=== PATIENT | female | born 1970 | race Caucasian/White ===

== ENCOUNTER 2021-11-20 08:13 | Outpatient (CLI) | payer SELFPAY ==
--- NOTE | 2021-11-20 08:21 | MM_ITS ---
WS: [id number] BILATERAL DIAGNOSTIC DIGITAL BREAST MAMMOGRAPHY WITH ANDRA DISPLACEMENT VIEWS. CAD PERFORMED. RIGHT BREAST ULTRASOUND, LIMITED. HISTORY: RIGHT BREAST PAIN COMPARISON: None available. Bilateral craniocaudal and mediolateral oblique views are performed with tomosynthesis and SM. Andra displacement views in CC and MLO projection also performed. Breasts composition: There are scattered areas of fibroglandular density. Implants are prepectoral a nd intact. No extravasation or collapse of either implant. No adjacent mass or distortion of soft tis sues. No abnormality is noted towards the RIGHT axillary tail in the area of pain. RIGHT breast ultrasound, limited. Ultrasound directed to the area of pain and towards the axillary tail. No suspicious findings are quyen ntified. The visualized implant appears intact. No soft tissue mass. No shadowing or soft tissue thic kening. Benign lymph nodes in the axilla. MM/[place] [id number] IMPRESSION: BI-RADS: 2-Benign FOLLOW-UP: 1 Year Follow-up No abnormality noted in the RIGHT breast in the area of pain.
== END 2021-11-20 08:14 | disposition home or self-care (01) ==
PROVIDERS: PCP Internal Medicine; Visit Provider Internal Medicine
DX: N64.4 Mastodynia (principal)
CPT/HCPCS: 76642; 77066

== ENCOUNTER 2023-11-29 11:55 | Outpatient (CLI) | payer MEDICAID, SELFPAY ==
--- NOTE | 2023-11-29 12:02 | MM_ITS ---
WS: [id number] BILATERAL SCREENING DIGITAL BREAST MAMMOGRAPHY WITH ANDRA DISPLACEMENT VIEWS. CAD PERFORMED. HISTORY: SCREENING COMPARISON: 11/20/2021 Bilateral craniocaudal and mediolateral oblique views are performed with tomosynthesis and SM. Andra displacement views in CC and MLO projection also performed. Breasts composition: There are scattered areas of fibroglandular density. Prepectoral implants are identified. No collapse of the implant. No suspicious mass or calcification. MM/[place] [id number] IMPRESSION: BI-RADS: 2-Benign FOLLOW-UP: 1 Year Follow-up
== END 2023-11-29 11:56 | disposition home or self-care (01) ==
LOC: RAD 11:56
PROVIDERS: PCP Internal Medicine; Visit Provider Internal Medicine
DX: Z12.31 Encounter for screening mammogram for malignant neoplasm of breast (principal); R92.323 Mammographic fibroglandular density, bilateral breasts; Z98.82 Breast implant status
CPT/HCPCS: 77063; 77067

== ENCOUNTER 2024-01-07 09:55 | Day surgery (SDC) | payer MEDICAID, SELFPAY ==
[2024-01-07 10:08] VITALS: BP 161/94; PULSE 74; RESP 16; TEMP 36.6; O2SAT 99
[2024-01-07] MEDS: sodium chloride 0.9% 1,000 ML 30 ML IV (10:24)
--- NOTE | 2024-01-07 10:44 | W.PM.OPSUD ---
Surgery/Procedure H&P Update DATE OF PROCEDURE: January 07, 2024 DATE H&P PERFORMED: 12/25/23 H&P UPDATE INFORMATION: I have reviewed H&P completed within last 30 days, I have examined patient prior to procedure, No changes to prior documentation, Changes to prior documentation as noted here and H&P is in [facility] EMR on date indicated CHANGES TO PREVIOUS DOCUMENTATION: I also discussed upper endoscopy for reflux symptoms, I discussed all reasonable benefits of an upper endoscopy including the recent perforation of the esophagus stomach or duodenum requiring surgical intervention transferred to higher level of care, I discussed possibility of injury of the tissue of the mouth and pharynx and injury to the teeth. PLANNED PROCEDURE: Operation Date: 01/07/24 11:00 Proposed Procedures p EGD 13639, 91370, G0105, K21.9, Z12.11(Not Applicable) - Yassine Black MD s Colonoscopy(Not Applicable) - Yassine Black MD
[2024-01-07 10:49] VITALS: BMI 32.5
--- NOTE | 2024-01-07 10:50 | P.ANESASSM_ITS ---
Pre-Anesthetic Assessment Height/Weight: Height 1.63 m Weight 86.183 kg Temp Pulse Resp BP Pulse Ox O2 Del Method 97.8 F 74 16 161/94 99 Room Air 01/07/24 10:08 01/07/24 10:08 01/07/24 10:08 01/07/24 10:08 01/07/24 10:08 01/07/24 10:08 Preop Diagnosis: GERD/Screening Operation Date: 01/07/24 11:00 Proposed Procedures p EGD 05590, 23314, G0105, K21.9, Z12.11(Not Applicable) - Yassine Black MD s Colonoscopy(Not Applicable) - Yassine Black MD Was Beta Bessie taken within 24 hours: N/A Was Clonidine taken within 24 hours: N/A Last intake: Intake Last Liquid Date 01/06/24 Last Liquid Time 23:50 Last Solid Date 01/05/24 Last Solid Time 21:00 Social No alcohol and No tobacco Exam alert, oriented x 3, clear to auscultation bilaterally and regular rate & rhythm Airway Submandibular: within normal limits Cervical ROM: within normal limits Mallampati: Class II Dentition: full History/ROS No significant history except as noted and No significant complaints Pulmonary None reported CV/HEM None reported None reported Hepatic None reported GI Gastroesophageal Reflux Disease Metabolic [place] [facility] [place] None reported Neuropsych None reported Anesthetic Plan ASA status: 2 Anesthesia: Anesthesia Evaluation and MAC Risk of > 500 ml blood loss (7ml/kg in children): No Medications/Allergies Home Medications Medication Instructions Recorded Confirmed Last Taken Type levothyroxine 150 mcg tablet 150 mcg PO DAILY 12/15/20 01/07/24 01/07/24 History (Synthroid) omeprazole 40 mg capsule,delayed 40 mg PO DAILY 12/25/23 01/07/24 01/06/24 History release Allergies Allergy/AdvReac Type Severity Reaction Status Date / Time No Known Allergies Allergy Verified 12/25/23 11:30 Current Medications Generic Name Dose Route Start Last Admin Trade Name Freq PRN Reason Stop Dose Admin Sodium Chloride 1,000 mls @ 30 mls/hr 01/07/24 10:00 01/07/24 10:24 Sodium Chloride 0.9% IV 30 mls/hr .Q24H CLYDE Administration PFSH Anesthesia Medical History Hypothyroid Acid reflux Surgical History H/O: hysterectomy Family History (Updated 12/25/23 @ 11:39 by VIRGILIO Richards) Grandmother Breast cancer Mother Ovarian cancer Social History (Updated 12/25/23 @ 11:39 by VIRGILIO Richards) Smoking and tobacco/nicotine status: never used tobacco/nicotine Data Anesthesia Cardiac Studies: No Data to Display
[2024-01-07 11:47] VITALS: BP 101/73; PULSE 73; RESP 20; TEMP 36.1; O2SAT 98
[2024-01-07 12:00] VITALS: BP 127/80; PULSE 71; RESP 20; O2SAT 100
[2024-01-07 12:10] VITALS: BP 118/80; PULSE 58; RESP 20; O2SAT 99
--- NOTE | 2024-01-07 12:36 | ANE.PACU2 ---
Inpatient post-anesthesia follow up: Airway intact: Yes Vital signs: Temperature 97.0 F Pulse Rate 58 Respiratory Rate 20 Blood Pressure 118/80 Pulse Oximetry 99 Oxygen Delivery Me thod Room Air Oxygen Flow Rate 4 Fraction of Inspir ed Oxygen Hydration adequate: Yes Nausea and vomiting: No Pain level: 1 Mental status: Baseline
== END 2024-01-07 12:36 | disposition home or self-care (01) ==
PROVIDERS: PCP Internal Medicine; Visit Provider Surgery
PROC: 0DJ08ZZ Inspection of Upper Intestinal Tract, Via Natural or Artificial Opening Endoscopic (ICD-10-PCS; CPT 43235; principal; 2024-01-07 11:00)
PROC: 0DJD8ZZ Inspection of Lower Intestinal Tract, Via Natural or Artificial Opening Endoscopic (ICD-10-PCS; CPT 45378; 2024-01-07 11:00)
DX: Z12.11 Encounter for screening for malignant neoplasm of colon (principal); K29.50 Unspecified chronic gastritis without bleeding; K63.5 Polyp of colon; K21.9 Gastro-esophageal reflux disease without esophagitis; E03.9 Hypothyroidism, unspecified
CPT/HCPCS: 43239; 45380; 88305; 88342; J2704; J7030

== ENCOUNTER 2025-02-15 10:15 | Outpatient (CLI) | payer MEDICAID, SELFPAY ==
--- NOTE | 2025-02-15 10:24 | MM_ITS ---
WS: [id number] BILATERAL SCREENING DIGITAL BREAST MAMMOGRAPHY WITH ANDRA DISPLACEMENT VIEWS. CAD PERFORMED. HISTORY: SCREENING COMPARISON: 11/29/2023, 11/20/2021 Bilateral craniocaudal and mediolateral oblique views are performed with tomosynthesis and SM. Andra displacement views in CC and MLO projection also performed. Breasts composition: There are scattered areas of fibroglandular density. Very subtle area of increased density and possible calcifications in the central LEFT breast. No additional abnormality within either breast. The implants are intact. No nipple retraction. MM/MM [facility] tomosynthesis [id number] IMPRESSION: BI-RADS: 0 - Incomplete: Need additional imaging evaluation. FOLLOW-UP: Need Additional Imaging LEFT BREAST: Magnification views of suspicious calcification CC and MLO. Bebeto Dale
== END 2025-02-15 10:16 | disposition home or self-care (01) ==
PROVIDERS: PCP Internal Medicine; Visit Provider Internal Medicine
DX: Z12.31 Encounter for screening mammogram for malignant neoplasm of breast (principal); R92.323 Mammographic fibroglandular density, bilateral breasts; R92.1 Mammographic calcification found on diagnostic imaging of breast; Z98.82 Breast implant status
CPT/HCPCS: 77063; 77067

== ENCOUNTER 2025-04-20 14:03 | Outpatient (CLI) | payer MEDICAID, SELFPAY ==
--- NOTE | 2025-04-20 14:09 | MM_ITS ---
WS: [id number] ADDITIONAL VIEWS LEFT MAMMOGRAM WITH DIGITAL BREAST TOMOSYNTHESIS. HISTORY: ABNORMAL L BREAST MAMMOGRAM, calcifications. COMPARISON: 02/15/2025, 11/29/2023 Magnification views LEFT breast in CC, MLO projections and true ML submitted with digital breast tomosynthesis and SM. Breast composition: There are scattered areas of fibroglandular density. The area of distortion and possible calcifications in the central LEFT breast resolves with additional imaging. These are probably pseudo calcifications and superimposed fibroglandular soft tissues. No residual calcifications or mass. MM/MM diag LT tomosynthesis [id number] IMPRESSION: BI-RADS: 2 - Benign. FOLLOW UP: 1 Year Follow-up Return to annual screening mammography.
== END 2025-04-20 14:04 | disposition home or self-care (01) ==
LOC: RAD 14:03
PROVIDERS: PCP Internal Medicine; Visit Provider Internal Medicine
DX: R92.8 Other abnormal and inconclusive findings on diagnostic imaging of breast (principal); R92.322 Mammographic fibroglandular density, left breast
CPT/HCPCS: 77061; 77063